=== PATIENT | female | born 1985 | race Caucasian/White ===

== ENCOUNTER 2021-07-02 12:56 | Emergency (ER) | payer OTHER ==
[2021-07-02 13:09] VITALS: BP 150/93; PULSE 100; RESP 20; TEMP 98.2
--- NOTE | 2021-07-02 13:53 | ED ---
General Adult HPI - General Chief complaint: Recheck/Abnormal Lab/Rx Stated complaint: covid exposure Source: patient Mode of arrival: ambulatory Limitations: no limitations - History of Present Illness Initial comments: Patient is a 36-year-old previously healthy female presents emergency department requesting Covid testing. States her ex- tested positive for Covid and she was returned from 2 days ago. Patient does not demonstrate any symptoms. - Related Data Home Medications Medication Instructions Recorded Confirmed Pnv with Ca,No.72/Iron/FA 1 each PO DAILY 07/29/14 01/22/15 [ Plus Multivitamin Tab] Previous Rx's Medication Instructions Recorded Acetaminophen-Codeine 300-30mg 2 each PO Q4HR PRN #30 tab 02/04/15 [Tylenol w/codeine #3] Ibuprofen [Motrin] 600 mg PO Q6HR PRN #30 tab 02/04/15 Allergies Allergy/AdvReac Type Severity Reaction Status Date / Time latex Allergy Rash/Hives Verified 07/02/21 13:09 Review of Systems ROS Statement: Those systems with pertinent positive or pertinent negative responses have been documented in the HPI. ROS Other: All systems not noted in ROS Statement are negative. Past Medical History Past Medical History: No Reported History History of Any Multi-Drug Resistant Organisms: None Reported Past Surgical History: Section Past Anesthesia/Blood Transfusion Reactions: No Reported Reaction Past Psychological History: No Psychological Hx Reported Smoking Status: Current some day smoker Past Alcohol Use History: Occasional Past Drug Use History: None Reported - Past Family History Father Family Medical History: No Reported History General Exam Limitations: no limitations Course Vital Signs 07/02/21 07/02/21 13:07 13:25 Temperature 98.2 F Pulse Rate 100 Respiratory 20 20 Rate Blood Pressure 150/93 O2 Sat by Pulse 96 Oximetry Medical Decision Making - Medical Decision Making Upon arrival patient was placed in room 32. Thorough history and physical exam was performed. Patient's swabbed for Covid and it is negative. Patient will be discharged home at this time. Instructed to return for any new or worsening symptoms - Lab Data Lab Results 07/02/21 Range/Units 13:10 Coronavirus (PCR) Not Detected (Not Detectd) Disposition Clinical Impression: Exposure to COVID-19 virus Disposition: HOME SELF-CARE Condition: Stable Instructions (If sedation given, give patient instructions): Normal Exam (ED) Additional Instructions: Your covid test was negative Is patient prescribed a controlled substance at d/c from ED?: No Referrals: None,Stated [Primary Care Provider] - 1-2 days Time of Disposition: 13:53
== END 2021-07-02 13:58 | disposition home or self-care (01) ==
LOC: EC 12:56
DX: Z20.822 Contact with and (suspected) exposure to COVID-19 (principal); F17.200 Nicotine dependence, unspecified, uncomplicated
CPT/HCPCS: 87635; 99282